=== PATIENT | female | born 1995 | race Caucasian/White ===

== ENCOUNTER 2019-04-30 19:50 | Inpatient (IN) ==
[2019-04-30] MEDS ORDERED: METOCLOPRAMIDE HCL INJ 5 MG/ML 2 ML VIAL IV STA (21:42)
[2019-04-30] MEDS ORDERED: DiphenhydrAMINE HCL 50 MG/ML VIAL IV STA (21:42)
[2019-04-30] MEDS ORDERED: KETOROLAC 30 MG/ML VIAL IV STA (21:42)
[2019-04-30] MEDS ORDERED: SODIUM CHLORIDE 0.9% 1000ML 1,000 ML IV ONE ×2 (21:42→22:34)
[2019-04-30] MEDS ORDERED: BENZONATATE 100 MG CAPSULE PO ONE (21:42)
[2019-04-30 21:47] LABS: Appearance Urine Cloudy (Clear); Bacteria Urine Automated Negative (Negative); Bilirubin Urine Negative (Negative); Blood Urine 1+ (Negative); Color Urine Yellow; Epithelial Cell Urine Auto >30 /lpf (0-5); Glucose Urine UA Negative (Negative); Ketones Urine Trace (Negative); Leukocyte Esterase Urine Trace (Negative); Nitrite Urine Negative (Negative); Protein Urine 4+ (Negative); RBC Urine Automated 0-4 /hpf (0-4); Specific Gravity Urine 1.019 (1.000-1.030); Urobilinogen Urine Negative (Negative)
--- NOTE | 2019-04-30 21:47 | Emergency Department Note ---
History of Present Illness General Chief complaint: Flu Like Symptoms Stated complaint: VOMITING, DIAGNOSED FRI WITH FLU Source: patient Mode of arrival: ambulatory Limitations: no limitations History of Present Illness Provider Complaint: + nausea and + vomiting Onset (ago): day(s) 5 Description of Vomiting: + watery Description of Diarrhea: + none Associated Abdominal Pain: Yes Location of pain: + diffuse Severity: moderate Maximum Pain Intensity: 8 Current Pain Intensity: 8 Quality: + cramping and + aching Pain Consistency: + constant Relieved By: + none Exacerbated By: + eating and + vomiting Context: + other (Diagnosed with influenza B 3 days ago) Associated symptoms: + myalgias, + cough, + malaise and + fatigue Treatments prior to arrival: + other (Zofran) HPI Narrative: This 23-year-old female patient presents emergency department today, ambulatory, complaining of nausea, vomiting, ongoing cough. The patient states 3 days ago, she was diagnosed with influenza B at [facility]. She was given prescription for Zofran and has been taking this without relief. She states she has not been able to keep down food or fluids for 5 days. She states she is continuing to produce urine. She describes a generalized abdominal discomfort which she describes as cramping and achy, worse with vomiting or eating and somewhat better with rest. The patient does report a headache for the past 5 days. She has not been taking any medications for the last 6 days. She was not prescribed Tamiflu. She did go back to [facility] today and was given "a shot in my butt" for nausea and prescribed more Zofran. She states it is not helping. She has not had a fever for approximately 2 days. She does report generalized malaise and body aches. Cough is nonproductive. Home Medications Home Medications Medication Instructions Recorded Confirmed Type No Known Home Medications 04/30/19 04/30/19 History Allergies Allergy/AdvReac Type Severity Reaction Status Date / Time No Known Allergies Allergy Unverified 04/30/19 22:36 Past Med/Surg History Medical History No pertinent past medical history Social History Preferred Language: Albanian Communication Ability: Effective [employer] Ad[employer] Required: No Beliefs That Will Affect Care: None Current Living Situation: Significant Other Feels Safe at Home: Yes Smoking Status: Never smoker Hx Alcohol Use: Yes Hx Substance Use: No Review of Systems A total of 10 systems reviewed and were otherwise negative Physical Exam Vital Signs: Vital Signs - 24 hr 04/30/19 20:02 04/30/19 21:39 04/30/19 22:50 Temperature 37.0 C Temperature Source Oral Pulse Rate 77 Pulse Rate [Right] 72 69 Pulse Rhythm [Righ t] Regular Regular Pulse Strength [Ri ght] Normal Normal Respiratory Rate 18 16 16 Respiratory Effort / Characteristics Non-Labored Sponta neous Non-Labored Sponta neous Respiratory Depth Normal Normal Normal Blood Pressure 131/86 Blood Pressure [Ri ght Arm] 126/90 126/90 Blood Pressure Eloise n 101 Blood Pressure Eloise n [Right Arm] 102 102 Blood Pressure Pos ition [Right Arm] Lying Pulse Oximetry 97 98 99 Oxygen Delivery Me thod Room Air Room Air Room Air Sepsis Recent Feve r Within 48 Hours Yes Sepsis New/Unexpla ined Change in Men taylor Status No Sepsis Action Take n by Nursing No Action Required 05/01/19 00:34 Temperature Temperature Source Pulse Rate Pulse Rate [Right] 67 Pulse Rhythm [Righ t] Regular Pulse Strength [Ri ght] Normal Respiratory Rate 16 Respiratory Effort / Characteristics Non-Labored Sponta neous Respiratory Depth Normal Blood Pressure Blood Pressure [Ri ght Arm] 126/88 Blood Pressure Eloise n Blood Pressure Eloise n [Right Arm] 100 Blood Pressure Pos ition [Right Arm] Pulse Oximetry 98 Oxygen Delivery Me thod Room Air Sepsis Recent Feve r Within 48 Hours Sepsis New/Unexpla ined Change in Men taylor Status Sepsis Action Take n by Nursing Physical Exam: VITALS: Vitals are noted on the nurse's note and reviewed by myself. Vital signs stable. No hypotension or tachycardia. GENERAL: This is a 23-year-old white female, in no acute distress, nondiaphoretic, well-developed well-nourished. SKIN: The skin was without rashes, erythema, edema, or bruising. There is no tenting of the skin. Capillary refill less than 2 seconds. HEAD: Normocephalic atraumatic. EARS: External auditory canals clear, tympanic membranes pearly johnson without erythema or effusion bilaterally. EYES: Pupils equal round and reactive to light and accommodation. Conjunctivae without injection, sclerae without icterus. NOSE: Patent, turbinates without inflammation or discharge. No sinus tenderness. MOUTH: Mucous membranes moist. Tonsils are not enlarged. Pharynx without erythema or exudate. Uvula midline. Airway patent. Tongue does not deviate. NECK: Supple without nuchal rigidity. No lymphadenopathy. HEART: Regular rate and rhythm without murmurs gallops or rubs. LUNGS: Clear to auscultation bilaterally without wheezes, rales or rhonchi. No retractions or accessory muscle use. ABDOMEN: Positive bowel sounds x 4. Normal tympanic percussion. Soft, nontender, without masses or organomegaly. Powell sign negative. No guarding or rebound tenderness. MUSCULOSKELETAL: No muscle atrophy, erythema, or edema noted. Full range of motion without joint tenderness in all extremities. No tenderness to palpation. Normal gait. Strength 5/5 throughout. NEURO: Patient was alert and oriented to person place and time. No focal neurological deficits. Course Course The patient was seen and evaluated as above. IV access obtained, labs drawn. Patient medicated with IV fluids, Reglan, diphenhydramine, Toradol. Labs reviewed by myself. I discussed the findings with the patient at bedside. I recommended admission due to CHRISTEN, thrombocytopenia, dehydration. I discussed the case with the specification manager. [facility] Please see hospitalist dictation regarding ongoing management care of this patient. Administered Medications Acetaminophen (Tylenol) 650 mg PO Q4H PRN PRN Reason: pain/fever Stop: 05/31/19 02:13 Last Admin: 05/01/19 02:48 Dose: 650 mg Documented by: [id number] Ondansetron HCl 6 mg/ Dextrose 53 mls @ 200 mls/hr IV Q6H PRN PRN Reason: Nausea And Vomiting Stop: 05/31/19 02:13 Last Infusion: 05/01/19 03:18 Dose: 0 mls/hr Documented by: [id number] Admin: 05/01/19 02:48 Dose: 200 mls/hr Documented by: [id number] Lactated Ringer's (Lr) 1,000 mls @ 150 mls/hr IV .Q6H40M EDIS Stop: 05/31/19 02:13 Last Admin: 05/01/19 03:15 Dose: 150 mls/hr Documented by: [id number] Ceftriaxone Sodium 1,000 mg/ (Dextrose) 50 mls @ 100 mls/hr IV Q24H [facility]; Protocol Stop: 05/06/19 02:59 Last Infusion: 05/01/19 04:09 Dose: 0 mls/hr Documented by: [id number] Admin: 05/01/19 03:22 Dose: 100 mls/hr Documented by: [id number] Discontinued Medications Benzonatate (Tessalon Perle) 200 mg PO NOW ONE Stop: 04/30/19 21:43 Last Admin: 04/30/19 21:47 Dose: 200 mg Documented by: [id number] Diphenhydramine HCl (Benadryl) 12.5 mg IV NOW STA Stop: 04/30/19 21:43 Last Admin: 04/30/19 21:46 Dose: 12.5 mg Documented by: [id number] Sodium Chloride (Nss 1000ml) 1,000 mls @ 999 mls/hr IV .Q1H1M ONE Stop: 04/30/19 22:42 Last Infusion: 04/30/19 22:50 Dose: 0 mls/hr Documented by: [id number] Admin: 04/30/19 21:47 Dose: 999 mls/hr Documented by: [id number] Sodium Chloride (Nss 1000ml) 1,000 mls @ 999 mls/hr IV .Q1H1M ONE Stop: 04/30/19 23:34 Last Infusion: 04/30/19 23:42 Dose: 0 mls/hr Documented by: [id number] Admin: 04/30/19 22:37 Dose: 999 mls/hr Documented by: [id number] Ketorolac Tromethamine (Toradol) 30 mg IV NOW STA Stop: 04/30/19 21:43 Last Admin: 04/30/19 21:47 Dose: 30 mg Documented by: [id number] Metoclopramide HCl (Reglan) 10 mg IV NOW STA Stop: 04/30/19 21:43 Last Admin: 04/30/19 21:47 Dose: 10 mg Documented by: [id number] Medical Decision Making Differential Diagnosis + gastroenteritis, + food borne illness, + infections, + appendicitis, + diverticulitis, + inflammatory bowel disease, + GI bleed, + biliary pathology, + nausea, + vomiting, + diarrhea and + abdominal pain Home Medications Current Medication List: was personally reviewed by me Laboratory Data Attestation: I reviewed the patient's lab results. No leukocytosis or anemia. There is a thrombocytopenia with platelet count of 59,000. Urinalysis negative for obvious evidence of infection. Trace ketones. Urine test negative. Gatton acutely elevated 2.96. Hepatic function and electrolytes without significant abnormality. Result diagrams: 04/30/19 21:33 04/30/19 21:33 Lab Results 04/30/19 04/30/19 04/30/19 Range/Units 21:30 21:30 21:33 WBC 8.55 (4.8-10.8) K/uL RBC 4.57 (4.2-5.4) M/uL Hgb 12.8 (12.0-16.0) g/dL Hct 36.6 L (37-47) % MCV 80.1 (80-100) fL MCH 28.0 (25-34) pg MCHC 35.0 (32-36) g/dL RDW Std Deviation 37.6 (36.4-46.3) fL RDW Coeff of Coby 13.0 (11.5-14.5) % Plt Count 59 L (130-400) K/uL MPV 10.1 (7.4-10.4) fL Immature Gran % (Auto) 0.2 % Neut % (Auto) 68.0 % Lymph % (Auto) 22.7 % Mayes % (Auto) 7.3 % Eos % (Auto) 1.6 % Baso % (Auto) 0.2 % Immature Gran # (Auto) 0.02 (0.00-0.02) K/uL Neut # (Auto) 5.81 (1.4-6.5) K/uL Lymph # (Auto) 1.94 (1.2-3.4) K/uL Mayes # (Auto) 0.62 H (0.11-0.59) K/uL Eos # (Auto) 0.14 (0-0.5) K/uL Baso # (Auto) 0.02 (0-0.2) K/uL Sodium (136-145) mmol/L Potassium (3.5-5.1) mmol/L Chloride (98-107) mmol/L Carbon Dioxide (21-32) mmol/L Anion Gap (3-11) BUN (7-18) mg/dl Creatinine (0.6-1.2) mg/dl Est Cr Clr Drug Dosing ml/min Est GFR ( Amer) Est GFR (Non-Af Amer) BUN/Creatinine Ratio (10-20) Glucose (70-99) mg/dl Calcium (8.5-10.1) mg/dl Total Bilirubin (0.2-1) mg/dl AST (15-37) U/L ALT (12-78) U/L Alkaline Phosphatase (45-117) U/L Total Creatine Kinase (26-192) U/L Total Protein (6.4-8.2) gm/dl Albumin (3.4-5.0) gm/dl Globulin (2.5-4.0) gm/dl Albumin/Globulin Ratio (0.9-2) Urine Color Yellow Urine Appearance Cloudy A (Clear) Urine pH 5.0 (4.5-7.5) Ur Specific [place] 1.019 (1.000-1.030) Urine Protein 4+ H (Negative) Urine Glucose (UA) Negative (Negative) Urine Ketones Trace H (Negative) Urine Blood 1+ H (Negative) Urine Nitrite Negative (Negative) Urine Bilirubin Negative (Negative) Urine Urobilinogen Negative (Negative) Ur Leukocyte Esterase Trace H (Negative) Urine WBC (Auto) 10-30 H (0-5) /hpf Urine RBC (Auto) 0-4 (0-4) /hpf U Hyaline Cast (Auto) 10-30 H (0-5) /lpf U Epithel Cells (Auto) >30 H (0-5) /lpf Urine Bacteria (Auto) Negative (Negative) Ur Renal Epithelial Cell Not Reportable Granular Casts 5-10 H (0) /lpf POC Ur Test NEG (NEG) 04/30/19 Range/Units 21:33 WBC (4.8-10.8) K/uL RBC (4.2-5.4) M/uL Hgb (12.0-16.0) g/dL Hct (37-47) % MCV (80-100) fL MCH (25-34) pg MCHC (32-36) g/dL RDW Std Deviation (36.4-46.3) fL RDW Coeff of Coby (11.5-14.5) % Plt Count (130-400) K/uL MPV (7.4-10.4) fL Immature Gran % (Auto) % Neut % (Auto) % Lymph % (Auto) % Mayes % (Auto) % Eos % (Auto) % Baso % (Auto) % Immature Gran # (Auto) (0.00-0.02) K/uL Neut # (Auto) (1.4-6.5) K/uL Lymph # (Auto) (1.2-3.4) K/uL Mayes # (Auto) (0.11-0.59) K/uL Eos # (Auto) (0-0.5) K/uL Baso # (Auto) (0-0.2) K/uL Sodium 135 L (136-145) mmol/L Potassium 3.8 (3.5-5.1) mmol/L Chloride 98 (98-107) mmol/L Carbon Dioxide 28 (21-32) mmol/L Anion Gap 9.0 (3-11) BUN 53 H (7-18) mg/dl Creatinine 2.96 H (0.6-1.2) mg/dl Est Cr Clr Drug Dosing 27.6 ml/min Est GFR ( Amer) 24.4 Est GFR (Non-Af Amer) 21.1 BUN/Creatinine Ratio 17.7 (10-20) Glucose 88 (70-99) mg/dl Calcium 8.8 (8.5-10.1) mg/dl Total Bilirubin 1.0 (0.2-1) mg/dl AST 38 H (15-37) U/L ALT 26 (12-78) U/L Alkaline Phosphatase 58 (45-117) U/L Total Creatine Kinase 48 (26-192) U/L Total Protein 7.3 (6.4-8.2) gm/dl Albumin 3.2 L (3.4-5.0) gm/dl Globulin 4.1 H (2.5-4.0) gm/dl Albumin/Globulin Ratio 0.8 L (0.9-2) Urine Color Urine Appearance (Clear) Urine pH (4.5-7.5) Ur Specific [place] (1.000-1.030) Urine Protein (Negative) Urine Glucose (UA) (Negative) Urine Ketones (Negative) Urine Blood (Negative) Urine Nitrite (Negative) Urine Bilirubin (Negative) Urine Urobilinogen (Negative) Ur Leukocyte Esterase (Negative) Urine WBC (Auto) (0-5) /hpf Urine RBC (Auto) (0-4) /hpf U Hyaline Cast (Auto) (0-5) /lpf U Epithel Cells (Auto) (0-5) /lpf Urine Bacteria (Auto) (Negative) Ur Renal Epithelial Cell Granular Casts (0) /lpf POC Ur Test (NEG) Blood Pressure Blood Pressure Findings: Normal blood pressure MDM Narrative This 23-year-old female patient presents emergency department today for eval uation of nausea, vomiting, and inability to tolerate p.o. food and fluids. The patient was recently diagnosed with influenza B. She was medicated initially here in the ED with IV fluids, Reglan, Benadryl, and Toradol. Her symptoms improved, however her labs showed an CHRISTEN with creatinine of 2.96 and BUN of 53. Patient is thrombocytopenic with platelet count of 59,000. She was medicated here in the ED with antiemetics, Toradol, and IV fluids. Because of these findings, I did recommend admission for further evaluation and management of symptoms. The patient will be admitted to the [facility] hospitalist service. Please see hospitalist dictation regarding ongoing management care of this patient. The chart was completed utilizing [employer] Speech voice recognition software. Grammatical errors, random word insertions, pronoun errors, and incomplete sentences are an occasional consequence of this system due to software limitations, ambient noise, and hardware issues. Any formal questions or concerns about the content, text, or information contained within the body of this dictation should be directly addressed to the provider for clarification. Impression & Plan Gastroenteritis, CHRISTEN (acute kidney injury), Thrombocytopenia, Influenza B, Dehydration Discharge Plan Visit Data *Final* Discharge Date/Time: 05/01/19 01:52 Chief Complaint: Flu Like Symptoms Stated Complaint: VOMITING, DIAGNOSED FRI WITH FLU ED Provider: Moises Bertrand ED Midlevel Provider: Kendy Valdovinos Discharge Problem: Gastroenteritis, CHRISTEN (acute kidney injury), Thrombocytopenia, Influenza B, Dehydration Patient Disposition: Admitted As Inpatient Discharge Instructions Interventions: ED Discharge Assessment Last Done: 05/01/19 01:52
[2019-04-30 22:00] LABS: Albumin Level 3.2 gm/dl (3.4-5.0); BUN Creatinine Ratio 17.7 (10-20); Calcium 8.8 mg/dl (8.5-10.1); Creatinine Clr Calc Pharmacy 27.6 ml/min; Est GFR (African American) 24.4; Est GFR (Non-African American) 21.1; Potassium 3.8 mmol/L (3.5-5.1)
[2019-04-30 22:03] LABS: Albumin Globulin Ratio 0.8 (0.9-2); Globulin 4.1 gm/dl (2.5-4.0); Total Protein 7.3 gm/dl (6.4-8.2)
[2019-04-30 22:33] LABS: Hematocrit (blood only) 36.6 % (37-47); Hemoglobin 12.8 g/dL (12.0-16.0); Mean Corpuscular Volume 80.1 fL (80-100); Mean Platelet Volume 10.1 fL (7.4-10.4); Platelet Count 59 K/uL (130-400); RDW Standard Deviation 37.6 fL (36.4-46.3); Red Blood Count 4.57 M/uL (4.2-5.4); White Blood Count 8.55 K/uL (4.8-10.8)
[2019-04-30 22:42] LABS: Basophils # (auto) 0.02 K/uL (0-0.2); Basophils % (auto) 0.2 %; Eosinophils # (auto) 0.14 K/uL (0-0.5); Eosinophils % (auto) 1.6 %; Immature Granulocytes # (auto) 0.02 K/uL (0.00-0.02); Immature Granulocytes % (auto) 0.2 %; Lymphocytes # (auto) 1.94 K/uL (1.2-3.4); Lymphocytes % (auto) 22.7 %; Monocytes # (auto) 0.62 K/uL (0.11-0.59); Monocytes % (auto) 7.3 %; Neutrophils # (auto) 5.81 K/uL (1.4-6.5)
--- NOTE | 2019-05-01 00:26 | History & Physical Report ---
Date of Service May 01, 2019 Assessment & Plan (1) Gastroenteritis: Patient is a 23-year-old female with no significant past medical history who presents to the emergency department for evaluation of nausea and vomiting that is been ongoing since last #Gastroenteritis Patient symptoms began last , and it persisted through the weekend. There is a fairly prolonged course for an acute episode of gastroenteritis however not completely unreasonable. Her laboratory values are more consistent with a viral etiology versus bacterial. Therefore we will treat symptomatically with supportive care. Physical exam findings are consistent with dehydration will provide adequate fluid resuscitation, patient currently status post 2 L - IVF @ 150 with LR -Zofran 6 mg every 4 hours as needed nausea -Pepto-Bismol 4 times daily -Advance diet as tolerated starting full liquids -Tylenol/Advil for fever/pain - test to rule out -A.m. CBC #CHRISTEN Creatinine is elevated 2.96 with a BUN of 53. We do not have a documented baseline creatinine, however will assume that since she is young and healthy her creatinine is around 1. Suspect her acute kidney injury is likely secondary to dehydration in the setting of persistent vomiting and inadequate fluid intake -Avoid nephrotoxic medications -Adequate fluid rehydration -Daily BMP -consider nephro cx if no improvement in am Cr #Dehydration Secondary to nausea and vomiting. Will provide adequate fluid resuscitation. #Urinary tract infection Patient's urinalysis is questionably consistent with a urinary tract infection. Urine was cloudy in appearance, trace leuk esterase, 10-30 white blood cells per high-powered field. Given her elevated creatinine, and current presentation will treat empirically with ceftriaxone -Urine culture -Ceftriaxone #Thrombocytopenia Admission laboratory values demonstrated a platelet count of 59. Patient reports a history of easy bruising, and bleeding from her gums while brushing her teeth. Will defer to day team to further work-up ITP in this patient. #Influenza B Recent influenza B infection, symptoms largely seem to be resolved. However still will need droplet precautions. FENa: Full liquids Code Status: Full code DVT PPX: Mechanical PT/OT: Not indicated Dispo: Shahnaz Granados MD PGY 2, FCM This chart was completed utilizing [employer] voice recognition software. Grammatical errors, random word insertions, pronoun errors, and in complete sentences are an occasional consequence of the system. Any questions or concerns about the content, text, or information contained within the body of this dictation should be addressed directly to the physician for clarification. (2) CHRISTEN (acute kidney injury): (3) Thrombocytopenia: (4) UTI (urinary tract infection): (5) Influenza B: (6) Dehydration: History of Present Illness Patient is a 23-year-old female with no significant past medical history who presents to the emergency department for evaluation of nausea and vomiting that is been ongoing since last . Last week she also had URI symptoms and presented to [facility] to have her GI and URI symptoms evaluated. At which point she was diagnosed with influenza B. She was not given a prescription for Tamiflu however was given a prescription for Zofran has been taking with minimal relief. She elaborated that she has been unable to keep food or fluids down for the past 5 days, however has been producing urine although concentrated. She has not had a bowel movement in the last 3 or 4 days. She has not had fevers in 2 days she denies shaking chills, diarrhea, constipation, abdominal pain, back pain, cough, congestion. She describes generalized abdominal discomfort with intermittent crampy and achy, it is worse with vomiting or eating and sometimes improves with rest. She does report an associated headache which she describes a migraine for the past 5 days, she is unsure whether the vomiting because of the headache or the headache because of the vomiting. She represented to [facility] earlier today it was given Zofran injection in her gluteus with some improvement. However once her symptoms reoccurred she presented to the emergency department for further evaluation and management. Pertinent labs obtained in the emergency department were negative for a white count positive for thrombocytopenia with platelet count of 59. Chemistries indicated a sodium of 135, BUN of 53, creatinine of 2.96 creatinine kinase was 48 however that was status post fluid resuscitation the remainder of her CMP was mostly within normal limits. Urinalysis was obtained demonstrating 4+ protein, cloudy, 1+ blood, trace leukocytes, 10-30 WBCs and greater than 30 epithelial cells. In the emergency department she was given Tessalon Perles, diphenhydramine, ketorolac, metoclopramide, and 2 L of normal saline. The hospital service was consulted for admission. Currently the patient states she is in no pain, her nausea symptoms have i mproved status post medication. Upon questioning her regarding the thrombocytopenia lab abnormality she does report a history of frequent bruising and bleeding while brushing her teeth. Patient also reports a history of frequent urinary tract infections requiring antibiotic therapy. Patient has no documented history of kidney disease. To the best of her knowledge she has had normal laboratory values in the past. All questions answered, acute concerns related to thrombocytopenia, questionable urinary tract infection, and underlying source of her nausea and vomiting. SHX: Patient recently moved here from [facility] with her , she works at [employer]. Denies alcohol, smoking, drug usage. Is sexually active, no concerns for STDs, uses protection. The patient does not think that there is any chance that she is . Primary Care Provider: NO PCP Allergies Allergy/AdvReac Type Severity Reaction Status Date / Time No Known Allergies Allergy Unverified 04/30/19 22:36 Home Medications Home Medications Medication Instructions Recorded Confirmed Type No Known Home Medications 04/30/19 04/30/19 History Past Med/Surg History Medical History No pertinent past medical history Social History Preferred Language: Turkmen Communication Ability: Effective Hospital Staff Pharmacist Required: No Beliefs That Will Affect Care: None Current Living Situation: Significant Other Feels Safe at Home: Yes Smoking Status: Never smoker Hx Alcohol Use: Yes Hx Substance Use: No Review of Systems Review of Systems: All systems reviewed & are unremarkable except as noted in HPI & below Physical Exam Physical Exam: General: Lying in bed in no acute distress HEENT: Normocephalic atraumatic Neck: Normal to visual inspection, trachea midline, negative JVD Cardiac: Regular rate and rhythm, I did not appreciate any significant murmurs rubs or gallops, normal S1, normal S2, negative pedal edema, negative calf tenderness Respiratory: Clear to auscultation bilaterally without significant wheezes, rales, rhonchi, symmetrical chest expansion by laterally, no increased work of breathing GI: Bowel sounds present, soft, tender to palpation in all 4 quadrants without rebound or guarding MSK: Moves all extremities Skin: No acute findings, dry mucous membranes Neuro: Alert and oriented Psych: Calm and cooperative Results & Data Vital Signs (Past 12 Hours) Vital Signs Temp Pulse Pulse Resp BP BP Pulse Ox 04/30/19 22:50 69 16 126/90 99 04/30/19 21:39 72 16 126/90 98 04/30/19 20:02 37.0 C 77 18 131/86 97 Laboratory Results 04/30/19 04/30/19 04/30/19 Range/Units 21:33 21:33 21:30 WBC 8.55 (4.8-10.8) K/uL RBC 4.57 (4.2-5.4) M/uL Hgb 12.8 (12.0-16.0) g/dL Hct 36.6 L (37-47) % MCV 80.1 (80-100) fL MCH 28.0 (25-34) pg MCHC 35.0 (32-36) g/dL RDW Std Deviation 37.6 (36.4-46.3) fL RDW Coeff of Coby 13.0 (11.5-14.5) % Plt Count 59 L (130-400) K/uL MPV 10.1 (7.4-10.4) fL Immature Gran % (Auto) 0.2 % Neut % (Auto) 68.0 % Lymph % (Auto) 22.7 % Warren % (Auto) 7.3 % Eos % (Auto) 1.6 % Baso % (Auto) 0.2 % Immature Gran # (Auto) 0.02 (0.00-0.02) K/uL Neut # (Auto) 5.81 (1.4-6.5) K/uL Lymph # (Auto) 1.94 (1.2-3.4) K/uL Warren # (Auto) 0.62 H (0.11-0.59) K/uL Eos # (Auto) 0.14 (0-0.5) K/uL Baso # (Auto) 0.02 (0-0.2) K/uL Sodium 135 L (136-145) mmol/L Potassium 3.8 (3.5-5.1) mmol/L Chloride 98 (98-107) mmol/L Carbon Dioxide 28 (21-32) mmol/L Anion Gap 9.0 (3-11) BUN 53 H (7-18) mg/dl Creatinine 2.96 H (0.6-1.2) mg/dl Est Cr Clr Drug Dosing 27.6 ml/min Est GFR ( Amer) 24.4 Est GFR (Non-Af Amer) 21.1 BUN/Creatinine Ratio 17.7 (10-20) Glucose 88 (70-99) mg/dl Calcium 8.8 (8.5-10.1) mg/dl Total Bilirubin 1.0 (0.2-1) mg/dl AST 38 H (15-37) U/L ALT 26 (12-78) U/L Alkaline Phosphatase 58 (45-117) U/L Total Creatine Kinase 48 (26-192) U/L Total Protein 7.3 (6.4-8.2) gm/dl Albumin 3.2 L (3.4-5.0) gm/dl Globulin 4.1 H (2.5-4.0) gm/dl Albumin/Globulin Ratio 0.8 L (0.9-2) Urine Color Yellow Urine Appearance Cloudy A (Clear) Urine pH 5.0 (4.5-7.5) Ur Specific [place] 1.019 (1.000-1.030) Urine Protein 4+ H (Negative) Urine Glucose (UA) Negative (Negative) Urine Ketones Trace H (Negative) Urine Blood 1+ H (Negative) Urine Nitrite Negative (Negative) Urine Bilirubin Negative (Negative) Urine Urobilinogen Negative (Negative) Ur Leukocyte Esterase Trace H (Negative) Urine WBC (Auto) 10-30 H (0-5) /hpf Urine RBC (Auto) 0-4 (0-4) /hpf U Hyaline Cast (Auto) 10-30 H (0-5) /lpf U Epithel Cells (Auto) >30 H (0-5) /lpf Urine Bacteria (Auto) Negative (Negative) Ur Renal Epithelial Cell Not Reportable Granular Casts 5-10 H (0) /lpf POC Ur Test (NEG) 04/30/19 Range/Units 21:30 WBC (4.8-10.8) K/uL RBC (4.2-5.4) M/uL Hgb (12.0-16.0) g/dL Hct (37-47) % MCV (80-100) fL MCH (25-34) pg MCHC (32-36) g/dL RDW Std Deviation (36.4-46.3) fL RDW Coeff of Coby (11.5-14.5) % Plt Count (130-400) K/uL MPV (7.4-10.4) fL Immature Gran % (Auto) % Neut % (Auto) % Lymph % (Auto) % Warren % (Auto) % Eos % (Auto) % Baso % (Auto) % Immature Gran # (Auto) (0.00-0.02) K/uL Neut # (Auto) (1.4-6.5) K/uL Lymph # (Auto) (1.2-3.4) K/uL Warren # (Auto) (0.11-0.59) K/uL Eos # (Auto) (0-0.5) K/uL Baso # (Auto) (0-0.2) K/uL Sodium (136-145) mmol/L Potassium (3.5-5.1) mmol/L Chloride (98-107) mmol/L Carbon Dioxide (21-32) mmol/L Anion Gap (3-11) BUN (7-18) mg/dl Creatinine (0.6-1.2) mg/dl Est Cr Clr Drug Dosing ml/min Est GFR ( Amer) Est GFR (Non-Af Amer) BUN/Creatinine Ratio (10-20) Glucose (70-99) mg/dl Calcium (8.5-10.1) mg/dl Total Bilirubin (0.2-1) mg/dl AST (15-37) U/L ALT (12-78) U/L Alkaline Phosphatase (45-117) U/L Total Creatine Kinase (26-192) U/L Total Protein (6.4-8.2) gm/dl Albumin (3.4-5.0) gm/dl Globulin (2.5-4.0) gm/dl Albumin/Globulin Ratio (0.9-2) Urine Color Urine Appearance (Clear) Urine pH (4.5-7.5) Ur Specific [place] (1.000-1.030) Urine Protein (Negative) Urine Glucose (UA) (Negative) Urine Ketones (Negative) Urine Blood (Negative) Urine Nitrite (Negative) Urine Bilirubin (Negative) Urine Urobilinogen (Negative) Ur Leukocyte Esterase (Negative) Urine WBC (Auto) (0-5) /hpf Urine RBC (Auto) (0-4) /hpf U Hyaline Cast (Auto) (0-5) /lpf U Epithel Cells (Auto) (0-5) /lpf Urine Bacteria (Auto) (Negative) Ur Renal Epithelial Cell Granular Casts (0) /lpf POC Ur Test NEG (NEG) Code Status & VTE Plan Code Status FULL VTE Prophylaxis Plan VTE Prophylaxis will be ordered: No Supervising Physician Co-Signing Physician Notes Attending addendum: I have physically seen this patient, have supervised the medical residents activities, and agree with the H&P unless as otherwise noted. Assessment and Plan: Intractable nausea and vomiting with dehydration- LR at 150 mls per hour. Zofran 4 mg IV every 6 hours as needed. Full liquid diet, advance as tolerated. Acetaminophen 650 mg p.o. every 6 hours. Mild pain or temperature. Hold NSAIDs due to CHRISTEN. Acute kidney injury- Creatinine 2.96 and BUN 53, with unknown baseline. Follow with serial basic metabolic panel as rehydration continues with IV fluids. Thrombocytopenia- Platelets 59 upon admission. Unknown baseline. Send peripheral smear. Follow serial CBC with differential. Possible ITP, von Willebrand's. Remainder orders and notations as noted. Resident Activity Tracking Resident Involvement: Resident Care Provided Care Provided: Adult Hospital Medicine
[2019-05-01] MEDS: ondansetron HCL 6 MG in DEXTROSE 5% 50 ML IV PRN ×3 (02:48→21:16)
[2019-05-01] MEDS: ACETAMINOPHEN 325 MG TAB PO PRN ×4 (02:48→21:24)
[2019-05-01] MEDS ORDERED: cefTRIAXone SODIUM 1,000 MG in DEXTROSE 5% 50 ML IV SCH (03:00)
[2019-05-01] MEDS: LACTATED RINGER'S 1,000 ML IV SCH ×3 (03:15→17:36)
[2019-05-01 07:45] LABS: Hematocrit (blood only) 30.3 % (37-47); Hemoglobin 10.7 g/dL (12.0-16.0); Mean Corpuscular Hemoglobin 28.5 pg (25-34); Mean Corpuscular Hgb Conc 35.3 g/dL (32-36); Mean Corpuscular Volume 80.8 fL (80-100); Red Blood Count 3.75 M/uL (4.2-5.4); White Blood Count 6.52 K/uL (4.8-10.8)
[2019-05-01] MEDS: BISMUTH SUBSALICYLATE SUSP PO SCH ×4 (07:56→21:17)
[2019-05-01 08:03] LABS: Pregnancy Test, Serum Negative (Negative)
[2019-05-01 08:05] LABS: Mean Platelet Volume 10.4 fL (7.4-10.4); Platelet Count 62 K/uL (130-400)
[2019-05-01 08:11] LABS: Basophils # (auto) 0.01 K/uL (0-0.2); Basophils % (auto) 0.2 %; Eosinophils # (auto) 0.27 K/uL (0-0.5); Eosinophils % (auto) 4.1 %; Immature Granulocytes # (auto) 0.02 K/uL (0.00-0.02); Immature Granulocytes % (auto) 0.3 %; Lymphocytes # (auto) 1.93 K/uL (1.2-3.4); Lymphocytes % (auto) 29.6 %; Monocytes # (auto) 0.55 K/uL (0.11-0.59); Monocytes % (auto) 8.4 %; Neutrophils # (auto) 3.74 K/uL (1.4-6.5); Neutrophils % (auto) 57.4 %
[2019-05-01 08:18] LABS: BUN Creatinine Ratio 17.5 (10-20); Calcium 7.7 mg/dl (8.5-10.1); Creatinine Clr Calc Pharmacy 31.5 ml/min; Est GFR (African American) 28.4; Est GFR (Non-African American) 24.5; Potassium 3.9 mmol/L (3.5-5.1)
[2019-05-01] MEDS ORDERED: SODIUM CHLORIDE 0.9% 1000ML 1,000 ML IV ONE (08:33)
[2019-05-01 10:02] LABS: Prothrombin Time 10.3 Seconds (9.0-12.0)
--- NOTE | 2019-05-01 11:42 | Hospitalist Progress Note ---
Date of Service May 01, 2019 Assessment & Plan (1) CHRISTEN (acute kidney injury): Most likely from Pre-renal loses in setting of emesis and unable to tolerate PO intake. - received 2L NSS Bolus in ED with Creatinine improving from 2.96 to 2.61. - Will give another 1L NSS Bolus to continue to increase fluid perfusion to kidneys - Will trend value - Still producing urine which is reassuring - Continue with LR @ 150ml/hr (2) Thrombocytopenia: Platelet count 59 on presentation increased to 62 today Patient reports hx of easy bruising and gum bleeding, unsure if this is related to counts on presentation Perhaps she has vW dz but that's a qualitative platelet pathology and not quant. Will check PT/INR since these patient's have Factor VIII deficiency. Consideration that she has ITP, but this is diagnosis of exclusion. Suspect this is related to bone marrow infiltration from influenza and will trend. - Currently no signs of bleeding Code: Full Code DVT ppx: Low risk, encourage ambulation FENGI: Regular diet Dispo: Most likely home tomorrow depending on Creatinine and clinical improvement. (3) Influenza B: Confirmed testing for Influenza B but out of window for appropriate treatment with Tamiflu. (4) Gastroenteritis: Resolving continue to treat with Zofran IV (5) UTI (urinary tract infection): Was started on Rocephin for this but I discontinued abx as UA was contaminated. Will follow Micro Urine. (6) Dehydration: as listed above Admission and Anticipated Discharge Date Admission Date: May 01, 2019 Supervising Physician Co-Signing Physician Notes Attending attestation Pt seen and examined in concert with Dr. Sy. In agreement with the documented findings as noted in the resident documentation with any exceptions or additions as noted here. Overall improved malaise and nausea with persistent fatigue and chills without rigor. On examination, S1/S2 nl RRR no MCG. CTAB. Abd NT/ND BS+ve Acute renal injury following persistent N/V - continue IV hydration, monitor BMP Thrombocytopenia - nl PT/INR, no sx presently - likely 2/2 suppression, monitor CBC Influenza B - droplet precautions. Else see resident documentation as noted. Subjective Daija notes feeling improved today. She still has cough but no fevers, chills, dyspnea. She notes she is urinating without difficulty. She notes her nausea has been improved with Zofran and that she hasn't had any vomiting. She notes no dysuria. Physical Exam Constitutional: WD/WN, vitals as above cooperative and comfortable Eyes: PERRL, conjunctivae normal, anicteric sclerae ENMT: external ear and nose normal, oropharynx normal Neck: normal visual inspection and trachea midline Respiratory: normal respiratory effort, lungs clear to auscultation Cardiovascular: RRR, no murmur, no edema Gastrointestinal (Abdomen): Inspection/Auscultation: normal bowel sounds Percussion/Palpation: abdomen soft; abdomen nontender, no guarding and abdomen not rigid Musculoskeletal: no cyanosis or clubbing, extremities motor strength 5/5 Skin: no rashes, warm and dry Neurologic: moves all extremities and awake Psychiatric: A+Ox3, euthymic affect Results & Data ([facility]) Vital Signs (Past 12 Hours) Vital Signs Temp Pulse Resp BP Pulse Ox 05/01/19 07:34 36.7 C 69 16 125/81 99 05/01/19 02:14 36.8 C 79 18 124/84 98 05/01/19 01:50 54 L 16 129/89 96 05/01/19 00:34 67 16 126/88 98 Resident Activity Tracking Resident Involvement: Resident Care Provided Care Provided: Adult Hospital Medicine
[2019-05-01 16:43] LABS: BUN Creatinine Ratio 17.4 (10-20); Creatinine Clr Calc Pharmacy 35.3 ml/min; Est GFR (African American) 32.6; Est GFR (Non-African American) 28.1; Potassium 3.4 mmol/L (3.5-5.1)
[2019-05-01] MEDS ORDERED: POTASSIUM CHLORIDE 20 MEQ/15 ML UDC PO STA (17:16)
[2019-05-01] MEDS ORDERED: POTASSIUM CHLORIDE / WTR 10 MEQ/100 ML PLCT IV ONE (17:47)
[2019-05-02] MEDS: LACTATED RINGER'S 1,000 ML IV SCH ×4 (02:16→19:20)
[2019-05-02] MEDS: ondansetron HCL 6 MG in DEXTROSE 5% 50 ML IV PRN ×2 (06:12→16:03)
[2019-05-02 06:39] LABS: BUN Creatinine Ratio 16.3 (10-20); Calcium 7.9 mg/dl (8.5-10.1); Creatinine Clr Calc Pharmacy 36.6 ml/min; Est GFR (Non-African American) 29.4; Potassium 3.7 mmol/L (3.5-5.1)
[2019-05-02 06:40] LABS: Albumin Globulin Ratio 0.7 (0.9-2); Albumin Level 2.4 gm/dl (3.4-5.0); Bilirubin,Total 0.8 mg/dl (0.2-1); Globulin 3.4 gm/dl (2.5-4.0); Magnesium 1.7 mg/dl (1.8-2.4); Phosphorus 4.8 mg/dl (2.5-4.9); Total Protein 5.8 gm/dl (6.4-8.2)
[2019-05-02] MEDS ORDERED: LACTATED RINGER'S 1,000 ML IV ONE (07:16)
[2019-05-02 07:37] LABS: Hematocrit (blood only) 30.8 % (37-47); Hemoglobin 10.7 g/dL (12.0-16.0); Mean Corpuscular Hemoglobin 27.9 pg (25-34); Mean Corpuscular Hgb Conc 34.7 g/dL (32-36); Mean Corpuscular Volume 80.2 fL (80-100); RDW Coefficient of Variation 12.9 % (11.5-14.5); RDW Standard Deviation 37.3 fL (36.4-46.3); Red Blood Count 3.84 M/uL (4.2-5.4); White Blood Count 7.34 K/uL (4.8-10.8)
[2019-05-02 07:55] LABS: Mean Platelet Volume 11.2 fL (7.4-10.4); Platelet Count 92 K/uL (130-400)
[2019-05-02 08:03] LABS: Basophils # (auto) 0.01 K/uL (0-0.2); Basophils % (auto) 0.1 %; Eosinophils % (auto) 4.1 %; Immature Granulocytes # (auto) 0.02 K/uL (0.00-0.02); Immature Granulocytes % (auto) 0.3 %; Lymphocytes # (auto) 1.85 K/uL (1.2-3.4); Lymphocytes % (auto) 25.2 %; Monocytes # (auto) 0.59 K/uL (0.11-0.59); Neutrophils # (auto) 4.57 K/uL (1.4-6.5); Neutrophils % (auto) 62.3 %
[2019-05-02] MEDS: BISMUTH SUBSALICYLATE SUSP PO SCH ×4 (08:48→20:16)
[2019-05-02] MEDS: MAGNESIUM SULFATE / D5W 1 GM/100 ML BAG IV SCH ×2 (09:26→11:09)
--- NOTE | 2019-05-02 10:50 | Ultrasound Report ---
US renal/blad retro comp HISTORY: 23 years-old Female CHRISTEN acute kidney injury COMPARISON: None TECHNIQUE: Multiple real-time sonographic images of the kidneys and urinary bladder were obtained ass essing grayscale appearance and color flow FINDINGS: Right kidney measures 12.0 cm in length. Mildly echogenic appearance of the right kidney with decreas ed corticomedullary differentiation. No right-sided renal calculi, hydronephrosis or suspicious mass lesions. Sludge-filled and mildly distended gallbladder incidentally noted. Sonographic Powell sign reported a s negative. The left kidney measures 11.4 cm in length. Mildly echogenic appearance of the left kidney with decre ased corticomedullary differentiation. No left-sided renal calculi, hydronephrosis or suspicious mass lesions. Urinary bladder is unremarkable with bilateral ureteral jets. Mild splenomegaly, 13.3 cm. Follicular changes of the left ovary incidentally noted. IMPRESSION: 1. Mildly echogenic appearance of the bilateral kidneys suggestive of underlying medical renal diseas e. 2. No renal calculi or hydronephrosis. 3. Sludge-filled gallbladder. 4. Mild splenomegaly. ACT 112: Negative or not required by law. The above report was generated using voice recognition software. It may contain grammatical, syntax o r spelling errors. Electronically signed by: Caleb Rojo M.D. 05/02/2019 10:48 AM
--- NOTE | 2019-05-02 12:12 | Hospitalist Progress Note ---
Date of Service May 02, 2019 Assessment & Plan (1) CHRISTEN (acute kidney injury): Most likely from Pre-renal loses in setting of emesis and unable to tolerate PO intake. - Previously received 3L NSS Bolus in ED with Creatinine improving from 2.96 to now 2.25. - Will give another 1L NSS Bolus to continue to increase fluid perfusion to kidneys - Will trend value - Still producing urine which is reassuring - Continue with LR @ 150ml/hr - Renal US performed today to check for any underlying renal congenital dz or anatomical pathology showed: 1. Mildly echogenic appearance of the bilateral kidneys suggestive of underlying medical renal disease. 2. No renal calculi or hydronephrosis. 3. Sludge-filled gallbladder. 4. Mild splenomegaly. - Echogenic appearance most likely related to CHRISTEN/inflammation. No further workup indicated at this time. Code: Full Code DVT ppx: Low risk, encourage ambulation FENGI: Regular diet Dispo: Most likely home tomorrow depending on Creatinine and clinical improvement. (2) Thrombocytopenia: Platelet count 59 on presentation increased to 62, and now today to 92. Patient reports hx of easy bruising and gum bleeding, unsure if this is related to counts on presentation Perhaps she has vW dz but that's a qualitative platelet pathology and not quant. PT/INR checked since these patient's have Factor VIII deficiency, and was normal. Consideration that she has ITP, but this is diagnosis of exclusion. Suspect this is related to bone marrow infiltration from influenza and will trend. - Currently no signs of bleeding On Renal US today showed mild splenomegaly which explains the Thrombocytopenia as platelets are sequestered in the spleen most likely from viral illness. (3) Influenza B: Confirmed testing for Influenza B at [facility] but out of window for appropriate treatment with Tamiflu. (4) Gastroenteritis: Resolving continue to treat with Zofran IV (5) UTI (urinary tract infection): Was started on Rocephin for this but I discontinued abx as UA was contaminated. Will follow Micro Urine micro, which reported pinpoint growth with reincubating. (6) Dehydration: as listed above Admission and Anticipated Discharge Date Admission Date: May 01, 2019 Supervising Physician Co-Signing Physician Notes Attending attestation Pt seen and examined in concert with Dr. Sy. In agreement with the documented findings as noted in the resident documentation with any exceptions or additions as noted here. Persistent, intermittent nausea with partial tolerance of PO intake, 2 episodes of vomiting. On examination, S1/S2 nl RRR no MCG. CTAB. Abd NT/ND BS+ve Acute renal injury following persistent N/V - continue IV hydration, monitor BMP Thrombocytopenia - nl PT/INR, no sx presently - likely 2/2 suppression, monitor CBC Influenza B - droplet precautions, supportive care. Else see resident documentation as noted. Subjective Daija notes feeling improved today. She still has cough but no fevers, chills, dyspnea. She notes she is urinating without difficulty. She did have two episodes of non-bloody emesis yesterday. She notes her nausea has been improved with Zofran and that she hasn't had any vomiting today. She also has been able to tolerate breakfast this morning, which is also improved. She notes no dysuria. Physical Exam Constitutional: WD/WN, vitals as above cooperative and comfortable Eyes: PERRL, conjunctivae normal, anicteric sclerae ENMT: external ear and nose normal, oropharynx normal Neck: normal visual inspection and trachea midline Respiratory: normal respiratory effort, lungs clear to auscultation Cardiovascular: RRR, no murmur, no edema Gastrointestinal (Abdomen): Inspection/Auscultation: normal bowel sounds Percussion/Palpation: abdomen soft; abdomen nontender, no guarding and abdomen not rigid Musculoskeletal: no cyanosis or clubbing, extremities motor strength 5/5 Skin: no rashes, warm and dry Neurologic: moves all extremities and awake Psychiatric: A+Ox3, euthymic affect Results & Data ([facility]) Vital Signs (Past 12 Hours) Vital Signs Temp Pulse Resp BP Pulse Ox 05/02/19 07:35 36.6 C 52 L 16 148/90 H 98 Laboratory Results Laboratory Results - last 24 hr 05/01/19 05/02/19 05/02/19 15:43 05:57 05:57 WBC Cancelled RBC Cancelled Hgb Cancelled Hct Cancelled MCV Cancelled MCH Cancelled MCHC Cancelled RDW Std Deviation Cancelled RDW Coeff of Coby Cancelled Plt Count Cancelled MPV Cancelled Immature Gran % (Auto) Cancelled Neut % (Auto) Cancelled Lymph % (Auto) Cancelled [place] % (Auto) Cancelled Eos % (Auto) Cancelled Baso % (Auto) Cancelled Immature Gran # (Auto) Cancelled Neut # (Auto) Cancelled Lymph # (Auto) Cancelled [place] # (Auto) Cancelled Eos # (Auto) Cancelled Baso # (Auto) Cancelled Absolute Nucleated RBC Cancelled Nucleated RBC % (auto) Cancelled Neutrophils % (Manual) Cancelled Band Neutrophils % Cancelled Lymphocytes % (Manual) Cancelled Prolymphocyte % Cancelled Reactive Lymphs % (Man) Cancelled Monocytes % (Manual) Cancelled Eosinophils % (Manual) Cancelled Basophils % (Manual) Cancelled Metamyelocytes % (Man) Cancelled Myelocytes % (Man) Cancelled Promyelocytes % (Man) Cancelled Blast Cells % (Manual) Cancelled Plasma Cell % (Manual) Cancelled Other Cells % Cancelled Nucleated RBC % Cancelled Neutrophils # (Manual) Cancelled Band Neutrophils # Cancelled Total Absolute Neuts Cancelled Lymphocytes # (Manual) Cancelled Prolymphocyte # Cancelled Reactive Lymphs # Cancelled Total Abs Lymphocytes Cancelled Monocytes # (Manual) Cancelled Eosinophils # (Manual) Cancelled Basophils # (Manual) Cancelled Metamyelocytes # (Man) Cancelled Myelocytes # (Manual) Cancelled Promyelocytes # (Man) Cancelled Blast Cells # (Man) Cancelled Plasma Cell # (Manual) Cancelled Other Cells # Cancelled Nucleated RBCs # (Man) Cancelled Hypersegmented Neuts Cancelled Hyposegmented Neuts Cancelled Hypogranular Neuts Cancelled Large Granular Lymphs Cancelled # Lrg Granular Lymphs Cancelled Hairy Cells Cancelled Smudge Cells Cancelled Toxic Granulation Cancelled Toxic Vacuolation Cancelled Dohle Bodies Cancelled Nu Rods Cancelled Platelet Estimate Cancelled Hypogranular Platelets Cancelled Clumped Platelets Cancelled Giant Platelets Cancelled Platelet Satelliting Cancelled RBC Morphology Cancelled Polychromasia Cancelled Hypochromasia Cancelled Poikilocytosis Cancelled Basophilic Stippling Cancelled Anisocytosis Cancelled Microcytosis Cancelled Macrocytosis Cancelled Spherocytes Cancelled Pappenheimer Bodies Cancelled Sickle Cells Cancelled Target Cells Cancelled Tear Drop Cells Cancelled Ovalocytes Cancelled Stomatocytes Cancelled Bro-Ramer Bodies Cancelled Echinocytes Cancelled Acanthocytes (Spur) Cancelled Rouleaux Cancelled RBC Agglutinates Cancelled Schistocytes Cancelled RBC Morph Comment Cancelled Sezary Cell Cancelled Sodium 139 139 Potassium 3.4 L 3.7 Chloride 107 106 Carbon Dioxide 24 24 Anion Gap 8.0 9.0 BUN 41 H 37 H Creatinine 2.33 H 2.25 H Est Cr Clr Drug Dosing 35.3 36.6 Est GFR ( Amer) 32.6 34.0 Est GFR (Non-Af Amer) 28.1 29.4 BUN/Creatinine Ratio 17.4 16.3 Glucose 80 70 Calcium 8.0 L 7.9 L Phosphorus 4.8 Magnesium 1.7 L Total Bilirubin 0.8 AST 31 ALT 19 Alkaline Phosphatase 45 Total Protein 5.8 L D Albumin 2.4 L Globulin 3.4 Albumin/Globulin Ratio 0.7 L Specimen Hemolysis 05/02/19 07:22 WBC 7.34 RBC 3.84 L Hgb 10.7 L Hct 30.8 L MCV 80.2 MCH 27.9 MCHC 34.7 RDW Std Deviation 37.3 RDW Coeff of Coby 12.9 Plt Count 92 L MPV 11.2 H Immature Gran % (Auto) 0.3 Neut % (Auto) 62.3 Lymph % (Auto) 25.2 [place] % (Auto) 8.0 Eos % (Auto) 4.1 Baso % (Auto) 0.1 Immature Gran # (Auto) 0.02 Neut # (Auto) 4.57 Lymph # (Auto) 1.85 [place] # (Auto) 0.59 Eos # (Auto) 0.30 Baso # (Auto) 0.01 Absolute Nucleated RBC Nucleated RBC % (auto) Neutrophils % (Manual) Band Neutrophils % Lymphocytes % (Manual) Prolymphocyte % Reactive Lymphs % (Man) Monocytes % (Manual) Eosinophils % (Manual) Basophils % (Manual) Metamyelocytes % (Man) Myelocytes % (Man) Promyelocytes % (Man) Blast Cells % (Manual) Plasma Cell % (Manual) Other Cells % Nucleated RBC % Neutrophils # (Manual) Band Neutrophils # Total Absolute Neuts Lymphocytes # (Manual) Prolymphocyte # Reactive Lymphs # Total Abs Lymphocytes Monocytes # (Manual) Eosinophils # (Manual) Basophils # (Manual) Metamyelocytes # (Man) Myelocytes # (Manual) Promyelocytes # (Man) Blast Cells # (Man) Plasma Cell # (Manual) Other Cells # Nucleated RBCs # (Man) Hypersegmented Neuts Hyposegmented Neuts Hypogranular Neuts Large Granular Lymphs # Lrg Granular Lymphs Hairy Cells Smudge Cells Toxic Granulation Toxic Vacuolation Dohle Bodies Nu Rods Platelet Estimate Hypogranular Platelets Clumped Platelets Giant Platelets Platelet Satelliting RBC Morphology Polychromasia Hypochromasia Poikilocytosis Basophilic Stippling Anisocytosis Microcytosis Macrocytosis Spherocytes Pappenheimer Bodies Sickle Cells Target Cells Tear Drop Cells Ovalocytes Stomatocytes Bro-Ramer Bodies Echinocytes Acanthocytes (Spur) Rouleaux RBC Agglutinates Schistocytes RBC Morph Comment Sezary Cell Sodium Potassium Chloride Carbon Dioxide Anion Gap BUN Creatinine Est Cr Clr Drug Dosing Est GFR ( Amer) Est GFR (Non-Af Amer) BUN/Creatinine Ratio Glucose Calcium Phosphorus Magnesium Total Bilirubin AST ALT Alkaline Phosphatase Total Protein Albumin Globulin Albumin/Globulin Ratio Specimen Hemolysis Medications Administered Acetaminophen (Tylenol) 650 mg PO Q4H PRN PRN Reason: pain/fever Stop: 05/31/19 02:13 Last Admin: 05/01/19 21:24 Dose: 650 mg Documented by: [id number] Admin: 05/01/19 16:25 Dose: 650 mg Documented by: [id number] Admin: 05/01/19 08:02 Dose: 650 mg Documented by: [id number] Admin: 05/01/19 02:48 Dose: 650 mg Documented by: [id number] Bismuth Subsalicylate (Pepto-Bismol) 30 ml PO QID EDIS Stop: 05/31/19 08:59 Last Admin: 05/02/19 12:13 Dose: Not Given Documented by: [id number] Admin: 05/02/19 08:48 Dose: Not Given Documented by: [id number] Admin: 05/01/19 21:17 Dose: Not Given Documented by: [id number] Admin: 05/01/19 16:29 Dose: 30 ml Documented by: [id number] Admin: 05/01/19 12:24 Dose: 30 ml Documented by: [id number] Admin: 05/01/19 07:56 Dose: 30 ml Documented by: [id number] Ondansetron HCl 6 mg/ Dextrose 53 mls @ 200 mls/hr IV Q6H PRN PRN Reason: Nausea And Vomiting Stop: 05/31/19 02:13 Last Infusion: 05/02/19 06:32 Dose: 0 mls/hr Documented by: [id number] Admin: 05/02/19 06:12 Dose: 200 mls/hr Documented by: [id number] Infusion: 05/01/19 21:46 Dose: 0 mls/hr Documented by: [id number] Admin: 05/01/19 21:16 Dose: 200 mls/hr Documented by: [id number] Infusion: 05/01/19 12:47 Dose: 0 mls/hr Documented by: [id number] Admin: 05/01/19 12:17 Dose: 200 mls/hr Documented by: [id number] Infusion: 05/01/19 03:18 Dose: 0 mls/hr Documented by: [id number] Admin: 05/01/19 02:48 Dose: 200 mls/hr Documented by: [id number] Lactated Ringer's (Lr) 1,000 mls @ 150 mls/hr IV .[id number] EDIS Stop: 05/31/19 02:13 Last Admin: 05/02/19 10:50 Dose: 150 mls/hr Documented by: [id number] Admin: 05/02/19 08:47 Dose: Not Given Documented by: [id number] Infusion: 05/02/19 08:47 Dose: 0 mls/hr Documented by: [id number] Admin: 05/02/19 02:16 Dose: 150 mls/hr Documented by: [id number] Infusion: 05/02/19 02:16 Dose: 0 mls/hr Documented by: [id number] Infusion: 05/01/19 21:16 Dose: 150 mls/hr Documented by: [id number] Admin: 05/01/19 17:36 Dose: 150 mls/hr Documented by: [id number] Infusion: 05/01/19 17:01 Dose: 150 mls/hr Documented by: [id number] Admin: 05/01/19 10:20 Dose: 150 mls/hr Documented by: [id number] Infusion: 05/01/19 09:56 Dose: 150 mls/hr Documented by: [id number] Admin: 05/01/19 03:15 Dose: 150 mls/hr Documented by: [id number] Ceftriaxone Sodium 1,000 mg/ (Dextrose) 50 mls @ 100 mls/hr IV Q24H [facility]; Protocol Stop: 05/06/19 02:59 Last Infusion: 05/01/19 04:09 Dose: 0 mls/hr Documented by: [id number] Admin: 02/25/20 03:22 Dose: 100 mls/hr Documented by: [id number] Resident Activity Tracking Resident Involvement: Resident Care Provided Care Provided: Adult [facility] Medicine
[2019-05-02] MEDS: ACETAMINOPHEN 325 MG TAB PO PRN ×2 (15:09→19:07)
[2019-05-02] MEDS ORDERED: LACTATED RINGER'S 500 ML IV ONE (17:26)
[2019-05-02] MEDS ORDERED: ondansetron HCL 6 MG in DEXTROSE 5% 50 ML IV PRN (17:26)
[2019-05-02] MEDS ORDERED: DiphenhydrAMINE HCL 50 MG/ML VIAL IV PRN (17:27)
--- NOTE | 2019-05-02 18:59 | XRay Report ---
XR KUB/Abdomen 1 view CLINICAL HISTORY: intractable vomiting COMPARISON STUDY: No previous studies for comparison. FINDINGS: The soft tissues, psoas shadows, renal outlines and intestinal gas pattern appear normal. T here is no evidence for bowel obstruction. No abnormal abdominal calcifications are seen. IMPRESSION: Normal study. ACT 112: Negative or not required by law. The above report was generated using voice recognition software. It may contain grammatical, syntax or spelling errors. Electronically signed by: Brian Lamar M.D. 05/02/2019 6:57 PM
[2019-05-02] MEDS ORDERED: PROMETHAZINE HCL 25 MG in SODIUM CHLORIDE 0.9% 50 ML IV PRN (21:37)
[2019-05-02] MEDS ORDERED: PROMETHAZINE HCL 25 MG in SODIUM CHLORIDE 0.9% 50 ML IV STA (21:37)
[2019-05-02] MEDS ORDERED: DiphenhydrAMINE HCL 50 MG/ML VIAL IV STA (21:40)
[2019-05-02] MEDS ORDERED: dexAMETHasone 6 MG in SYRINGE 0 ML IV ONE (22:00)
[2019-05-03] MEDS ORDERED: ONDANSETRON INJ 2 MG/ML 2 ML VIAL IV PRN (00:28)
[2019-05-03] MEDS ORDERED: ondansetron HCL 6 MG in DEXTROSE 5% 50 ML IV PRN (01:15)
[2019-05-03] MEDS: LACTATED RINGER'S 1,000 ML IV SCH ×2 (01:58→09:22)
[2019-05-03] MEDS: ACETAMINOPHEN 325 MG TAB PO PRN ×2 (02:45→09:28)
--- NOTE | 2019-05-03 06:22 | Billing Data ---
Date of Service May 03, 2019 Coding Level of Care Code 04227 Initial Inpt Care Lvl 3
--- NOTE | 2019-05-03 06:46 | Magnetic Resonance Report ---
MRI OF THE BRAIN WITHOUT CONTRAST CLINICAL HISTORY: new onset headache COMPARISON STUDY: None. FINDINGS: Sagittal T1, axial diffusion, proton density and T2 weighted axial, coronal FLAIR, and axial T1-weigh kristel images were acquired. No intra or extra-axial mass lesions are visualized Axial diffusion-weighted images reveal no evidence of acute or subacute infarction. There is no evidence of ventricular dilatation. Proton density T2-weighted and FLAIR images reveal no significant intraparenchymal signal abnormaliti es. There are no abnormal flow voids. There is mucosal thickening within the paranasal sinuses. IMPRESSION: 1. Paranasal sinus mucosal thickening. Otherwise normal noncontrast MRI of the brain. ACT 112: Negative or not required by law. Electronically signed by: Jimmy Dior M.D. 05/03/2019 6:45 AM
[2019-05-03 08:22] LABS: Hematocrit (blood only) 31.2 % (37-47); Hemoglobin 11.1 g/dL (12.0-16.0); Mean Corpuscular Hemoglobin 28.1 pg (25-34); Mean Corpuscular Hgb Conc 35.6 g/dL (32-36); Mean Platelet Volume 10.9 fL (7.4-10.4); Platelet Count 160 K/uL (130-400); RDW Coefficient of Variation 12.4 % (11.5-14.5); RDW Standard Deviation 35.9 fL (36.4-46.3); Red Blood Count 3.95 M/uL (4.2-5.4); White Blood Count 4.77 K/uL (4.8-10.8)
[2019-05-03 08:23] LABS: Basophils # (auto) 0.01 K/uL (0-0.2); Basophils % (auto) 0.2 %; Immature Granulocytes # (auto) 0.01 K/uL (0.00-0.02); Immature Granulocytes % (auto) 0.2 %; Lymphocytes # (auto) 0.62 K/uL (1.2-3.4); Monocytes # (auto) 0.21 K/uL (0.11-0.59); Monocytes % (auto) 4.4 %; Neutrophils # (auto) 3.92 K/uL (1.4-6.5); Neutrophils % (auto) 82.2 %; Platelet Estimate Decreased (Normal)
[2019-05-03 08:26] LABS: Albumin Level 2.5 gm/dl (3.4-5.0); BUN Creatinine Ratio 15.5 (10-20); Calcium 8.1 mg/dl (8.5-10.1); Creatinine Clr Calc Pharmacy 38.1 ml/min; Est GFR (African American) 35.7; Est GFR (Non-African American) 30.8; Potassium 3.6 mmol/L (3.5-5.1)
[2019-05-03 08:28] LABS: Albumin Globulin Ratio 0.7 (0.9-2); Bilirubin,Total 0.7 mg/dl (0.2-1); Globulin 3.4 gm/dl (2.5-4.0); Total Protein 5.9 gm/dl (6.4-8.2)
[2019-05-03] MEDS ORDERED: FAMOTIDINE 20 MG in SYRINGE 3 ML IV SCH (09:00)
[2019-05-03] MEDS: BISMUTH SUBSALICYLATE SUSP PO SCH ×2 (09:22→13:19)
[2019-05-03 10:58] LABS: Pregnancy Test, Urine Negative (Negative)
[2019-05-03 11:00] LABS: Appearance Urine Clear (Clear); Bacteria Urine Automated Negative (Negative); Bilirubin Urine Negative (Negative); Blood Urine Trace (Negative); Color Urine Yellow; Epithelial Cell Urine Auto >30 /lpf (0-5); Glucose Urine UA Negative (Negative); Ketones Urine 1+ (Negative); Leukocyte Esterase Urine Negative (Negative); Nitrite Urine Negative (Negative); Protein Urine 3+ (Negative); RBC Urine Automated 0-4 /hpf (0-4); Specific Gravity Urine 1.011 (1.000-1.030); Urobilinogen Urine Negative (Negative)
--- NOTE | 2019-05-03 14:01 | Discharge Summary ---
Date of Service May 03, 2019 Admission HPI Per Admitting Provider 23-year-old female with no significant past medical history who presents to the emergency department for evaluation of nausea and vomiting that is been ongoing since last . Last week she also had URI symptoms and presented to [facility] to have her GI and URI symptoms evaluated. At which point she was diagnosed with influenza B. She was not given a prescription for Tamiflu however was given a prescription for Zofran has been taking with minimal relief. She elaborated that she has been unable to keep food or fluids down for the past 5 days, however has been producing urine although concentrated. She has not had a bowel movement in the last 3 or 4 days. She has not had fevers in 2 days she denies shaking chills, diarrhea, constipation, abdominal pain, back pain, cough, congestion. She describes generalized abdominal discomfort with intermittent crampy and achy, it is worse with vomiting or eating and sometimes improves with rest. She does report an associated headache which she describes a migraine for the past 5 days, she is unsure whether the vomiting because of the headache or the headache because of the vomiting. She represented to [facility] earlier today it was given Zofran injection in her gluteus with some improvement. However once her symptoms reoccurred she presented to the emergency department for further evaluation and management. Pertinent labs obtained in the emergency department were negative for a white count positive for thrombocytopenia with platelet count of 59. Chemistries indicated a sodium of 135, BUN of 53, creatinine of 2.96 creatinine kinase was 48 however that was status post fluid resuscitation the remainder of her CMP was mostly within normal limits. Urinalysis was obtained demonstrating 4+ protein, cloudy, 1+ blood, trace leukocytes, 10-30 WBCs and greater than 30 epithelial cells. In the emergency department she was given Tessalon Perles, diphenhydramine, ketorolac, metoclopramide, and 2 L of normal saline. The hospital service was consulted for admission. Currently the patient states she is in no pain, her nausea symptoms have improved status post medication. Upon questioning her regarding the thrombocytopenia lab abnormality she does report a history of frequent bruising and bleeding while brushing her teeth. Patient also reports a history of frequent urinary tract infections requiring antibiotic therapy. Patient has no documented history of kidney disease. To the best of her knowledge she has had normal laboratory values in the past. All questions answered, acute concerns related to thrombocytopenia, questionable urinary tract infection, and underlying source of her nausea and vomiting. SHX: Patient recently moved here from [facility] with her , she works at [employer]. Denies alcohol, smoking, drug usage. Is sexually active, no concerns for STDs, uses protection. The patient does not think that there is any chance that she is . Primary Care Provider: NO PCP Principal Diagnosis Acute Kidney Injury Discharge Exam Constitutional WD/WN, vitals as above cooperative and comfortable Eyes PERRL, conjunctivae normal, anicteric sclerae ENMT external ear and nose normal, oropharynx normal Neck normal visual inspection and trachea midline Respiratory normal respiratory effort, lungs clear to auscultation Cardiovascular RRR, no murmur, no edema Gastrointestinal (Abdomen) Inspection/Auscultation: normal bowel sounds Percussion/Palpation: abdomen soft; abdomen nontender, no guarding and abdomen not rigid Musculoskeletal no cyanosis or clubbing, extremities motor strength 5/5 Skin no rashes, warm and dry Neurologic moves all extremities and awake Psychiatric A+Ox3, euthymic affect Discharge Data Allergies Allergy/AdvReac Type Severity Reaction Status Date / Time No Known Allergies Allergy Unverified 04/30/19 22:36 Consultations 04/30/19 22:57 ED Decision to Admit Stat 05/03/19 09:12 Consult Gastroenterology Routine Ordered Studies 05/02/19 10:00 US renal/blad retro comp Urgent 05/03/19 00:49 MR brain wo con Routine - Normal Hospital Course (1) CHRISTEN (acute kidney injury): Most likely from Pre-renal loses in setting of emesis and unable to tolerate PO intake. - Creatinine improving from 2.96 to 2.25 to 2.16 on day of discharge with aggressive IV Fluid management. - Renal US performed today to check for any underlying renal congenital dz or anatomical pathology showed: 1. Mildly echogenic appearance of the bilateral kidneys suggestive of underlying medical renal disease. 2. No renal calculi or hydronephrosis. 3. Sludge-filled gallbladder. 4. Mild splenomegaly. - Echogenic appearance most likely related to CHRISTEN/inflammation. No further workup indicated at this time. Code: Full Code DVT ppx: Low risk, encourage ambulation FENGI: Regular diet Dispo: DC Home follow up outpatient (2) Thrombocytopenia: Platelet count 59 on presentation increased to 62, then to 92; on day of discharge WNL 160. Patient reports hx of easy bruising and gum bleeding, unsure if this is related to counts on presentation Perhaps she has vW dz but that's a qualitative platelet pathology and not quant. PT/INR checked since these patient's have Factor VIII deficiency, and was normal. Consideration that she has ITP, but this is diagnosis of exclusion. Suspect this is related to bone marrow infiltration from influenza and will trend. - Currently no signs of bleeding - On Renal US showed mild splenomegaly which explains the Thrombocytopenia as platelets are sequestered in the spleen most likely from viral illness. (3) Influenza B: Confirmed testing for Influenza B at [facility] but out of window for appropriate treatment with Tamiflu. (4) Gastroenteritis: Resolving was refractory overnight and Brain MRI was ordered to ensure no neurologic pr ocess such as brain tumor as cause, which was normal. Was tolerating PO intake on day of discharge and was considered okay to go home. (5) UTI (urinary tract infection): Was started on Rocephin for this but I discontinued abx as UA was contaminated. Micro Urine was negative Repeated UA and Urine preg on day of discharge since vomiting overnight; UA was negative for infection; Preg was negative. (6) Dehydration: as listed above Total Time Total Time Spent Total Time Spent (In Minutes): 45 Total Time Includes: Examination of the Patient, Discharge Planning and Medication Reconciliation Discharge Plan Discharge Items Patient Disposition: Home - Self-Care Reason For Visit: GASTROENTERITIS, ELEVATED CR Discharge Diagnosis: Acute Kidney Injury Activity: Resume your previous activity Non-emergency contact: Primary Care Provider Call non-emergency contact if: you have any medication questions, your symptoms worsen and you have a fever Follow-up/Referrals: Renny Sy DO [Resident] - 05/21/19 3:30 pm Diet: Regular Ambulatory Orders: Basic Metabolic Panel (Routine) Timeframe: 2 Weeks Location: Determined by Patient Ordered By: Renny Gonzalez Attending Provider Instructions: Daija you were admitted for an Acute Kidney Injury (Elevated Creatinine Laboratory Level). This was most likely caused by your nausea and vomiting. We were unable to identify a cause for why you had recurring nausea and vomiting. But, we were able to reassure that serious/life threatening causes were not present. You had a MRI Brain which did not show any intracranial process like a tumor. We also performed an Abdominal Xray to make sure there wasn't any bowel obstruction. Your kidney levels have improved from 3.0 to 2.16, which is reassuring that they will recover. Please continue to drink clear fluids, avoid sugary drinks/caffeine as these can cause dehydration. It is important to stay well hydrated. Avoid Advil, Ibuprofen, Naproxyn as these can constrict flow through your kidneys. Tylenol is okay, but do not exceed more than 3 grams (3,000mg) total per day.We recommend you get a follow up lab test in 1-2 weeks to ensure your kidney's return to normal levels. But watch your urine output. If you have a significantly decreased in your urine output, please call my office or return to [facility]. You also had low platelet levels and a mildly enlarged spleen. The enlarged spleen is commonly seen in viral illness often mononucleosis. Your platelet counts did return to normal levels. I provided my contact information for follow up with [facility], which is across from the hospital. I would be happy to see you for hospital follow up around 2 weeks to review your labs and make sure you are doing well. You are more than welcome to see myself or any one of our other residents sooner if you have any problems. I provided a prescription for Zofran 4mg dissolvable tablets. This will ensure that if you have any further vomiting that your body would still be able to absorb the medication. Thank you for being patient with us while we took care of you. Wish you the best of luck! Tino Sy D.O. Pending Studies at Discharge: No Stand-Alone Forms: My [facility], Work/School Release (Inpt) Medications and DC Order Prescriptions: New ondansetron 4 mg tablet,disintegrating 4 mg PO Q6H PRN (Reason: nausea and vomiting) Qty: 20 RF: 0 No Action No Known Home Medications RF: 0 Discharge Orders: Discharge Order (Routine); Ordered 05/03/19 Ordered By: Renny Blue/Other Patient Handouts: Acute Kidney Injury Dc Admission Data Admit Date/Time: 05/01/19 01:01 Attending Provider: Sergey Hager Admit Provider: Yg Granados I. Primary Care Provider: PCP,NO Other Providers: Magdy Thornton Other Interventions: Discharge Summary Assessment (RN) Last Done: 05/03/19 14:16 DC Date/Time DO NOT enter until pt leaves facility: 05/03/19 15:03 Supervising Physician Co-Signing Physician Notes Attending attestation Pt seen and examined in concert with Dr. Sy. In agreement with the documented findings as noted in the resident documentation with any exceptions or additions as noted here. Resolution of nausea and vomiting today without complaint and tolerating oral intake well. On examination, S1/S2 nl RRR no MCG. CTAB. Abd NT/ND BS+ve Intractable nausea/vomiting in the setting of flu B - improved on PPI and antiemetics, will continue course and recommend close outpatient follow up and return with recurrence. CHRISTEN - gradual improvement in creatitine with need for repeat prior to re- evaluation. Encourage oral hydration. Thrombocytopenia - improved over course, likely 2/2 viral illness, splenic sequestration. Would warrant monitoring if sx persist. Else see resident documentation as noted. Time Spent: 25 minutes. Resident Activity Tracking Resident Involvement: Resident Care Provided Care Provided: Adult Hospital Medicine
== END 2019-05-03 15:03 | disposition home or self-care (01) | DRG 684 ==
LOC: ED 19:50 → 2W 05-01 01:01 → SUATTDRO 05-01 01:01 → 2W 05-01 01:52 → 3W 05-01 12:36